=== PATIENT | male | born 1945 | race Asian ===

== ENCOUNTER 2017-09-15 18:41 | Inpatient (IN) | payer MEDICARE, MEDICAID ==
[~2017-09-15] VITALS: Ht 167.6 cm; Wt 46.3 kg
[2017-09-15 18:53] VITALS: BP 115/66
[2017-09-15] MEDS ORDERED: Morphine Sulfate 4mg/ml Inj IVP ONE (20:15)
[2017-09-15 20:22] LABS: BASOPHILS % (AUTO) 1.2 % (0.0-2.0); EOSINOPHILS % (AUTO) 6.8 % (0.0-3.0); HEMATOCRIT 31.3 % (42.0-52.0); HEMOGLOBIN 10.2 G/DL (14.2-18.0); LYMPHOCYTES % (AUTO) 13.2 % (20.0-45.0); MEAN CORPUSCULAR VOLUME 94 FL (80-99); MONOCYTES % (AUTO) 9.2 % (1.0-10.0); NEUTROPHILS % (AUTO) 69.5 % (45.0-75.0); PLATELET COUNT 167 K/UL (150-450); RED BLOOD COUNT 3.34 M/UL (4.70-6.10); RED CELL DISTRIBUTION WIDTH 13.8 % (11.6-14.8); WHITE BLOOD COUNT 6.2 K/UL (4.8-10.8)
[2017-09-15 20:33] LABS: INR 1.1 (0.9-1.1)
[2017-09-15 20:46] LABS: ANION GAP 6 mmol/L (5-15); BLOOD UREA NITROGEN 27 mg/dL (7-18); CALCIUM 8.3 MG/DL (8.5-10.1); CARBON DIOXIDE 28 MMOL/L (21-32); CHLORIDE 104 MMOL/L (98-107); CREATININE 0.9 MG/DL (0.55-1.30); POTASSIUM 3.9 MMOL/L (3.5-5.1); SODIUM 138 MMOL/L (136-145)
[2017-09-15 20:50] LABS: ALANINE AMINOTRANSFERASE 22 U/L (12-78); ALBUMIN/GLOBULIN RATIO 0.8 (1.0-2.7); ALKALINE PHOSPHATASE 200 U/L (46-116); ASPARTATE AMINO TRANSFERASE 31 U/L (15-37); BILIRUBIN,TOTAL 0.3 MG/DL (0.2-1.0); CREATINE KINASE 55 U/L (26-308)
[2017-09-15 21:30] VITALS: BP 118/71
--- NOTE | 2017-09-15 22:31 | Emergency Room Report ---
History of Present Illness General Chief Complaint: Multiple Trauma/Fall Source: Patient Present Illness HPI Patient is a 72-year-old male brought in by EMS after fall. Patient was noted to have increased pain to his left hip. Patient prior history of metastatic lung cancer. The patient had been unable to ambulate since Friday. He reported having increased pain. The patient was taking pain medications. Allergies: Coded Allergies: No Known Allergies (Unverified , 09/15/17) Patient History Past Medical History: see triage record Reviewed Nursing Documentation: PMH: Agreed; PSxH: Agreed Nursing Documentation-PMH Past Medical History: No History, Except For Hx Cancer: Yes - lung Review of Systems All Other Systems: negative except mentioned in HPI Physical Exam Vital Signs Date Time Temp Pulse Resp B/P (MAP) Pulse Ox O2 Delivery O2 Flow Rate FiO2 09/15/17 18:43 99.1 101 20 119/63 99 Room Air 99.1 Sp02 EP Interpretation: reviewed, normal General Appearance: normal inspection, well appearing, alert, GCS 15, thin, Chronically Ill Head: atraumatic Respiratory: normal inspection, lungs clear, normal breath sounds, no respiratory distress, no retraction, no wheezing Cardiovascular #1: regular rate, rhythm, no edema Gastrointestinal: normal inspection, normal bowel sounds, non tender, soft, no guarding, no hernia Genitourinary: no CVA tenderness Musculoskeletal: normal inspection, back normal, normal range of motion Neurologic: normal inspection, alert, oriented x3, responsive, speech normal Psychiatric: normal inspection, judgement/insight normal, mood/affect normal Skin: no rash, pallor Medical Decision Making Diagnostic Impression: Primary Impression: Fall Additional Impressions: Fracture of iliac wing Lung cancer metastatic to bone ER Course H presented for fall. Differential diagnosis included was not limited to neck fracture, CVA, close head injury, syncopal episode, basilar ischemia. Because of complexity of patient's case laboratory testing and imaging studies were ordered. CT imaging of the pelvis read by radiology showed fracture of the and left ilium characterized by cortical expansion erosion mild soft tissue edema small amount of atherosclerotic calcifications associated with mild left iliopsoas enlargement. Patient was given IV pain medications. Dr. Ben Coleman was contacted for inpatient management Labs Test 09/15/17 19:10 White Blood Count 6.2 K/UL (4.8-10.8) Red Blood Count 3.34 M/UL (4.70-6.10) Hemoglobin 10.2 G/DL (14.2-18.0) Hematocrit 31.3 % (42.0-52.0) Mean Corpuscular Volume 94 FL (80-99) Mean Corpuscular Hemoglobin 30.7 PG (27.0-31.0) Mean Corpuscular Hemoglobin Concent 32.7 G/DL (32.0-36.0) Red Cell Distribution Width 13.8 % (11.6-14.8) Platelet Count 167 K/UL (150-450) Mean Platelet Volume 6.8 FL (6.5-10.1) Neutrophils (%) (Auto) 69.5 % (45.0-75.0) Lymphocytes (%) (Auto) 13.2 % (20.0-45.0) Monocytes (%) (Auto) 9.2 % (1.0-10.0) Eosinophils (%) (Auto) 6.8 % (0.0-3.0) Basophils (%) (Auto) 1.2 % (0.0-2.0) Prothrombin Time 11.7 SEC (9.30-11.50) Prothromb Time International Ratio 1.1 (0.9-1.1) Activated Partial Thromboplast Time 29 SEC (23-33) Sodium Level 138 MMOL/L (136-145) Potassium Level 3.9 MMOL/L (3.5-5.1) Chloride Level 104 MMOL/L (98-107) Carbon Dioxide Level 28 MMOL/L (21-32) Anion Gap 6 mmol/L (5-15) Blood Urea Nitrogen 27 mg/dL (7-18) Creatinine 0.9 MG/DL (0.55-1.30) Estimat Glomerular Filtration Rate mL/min (>60) Glucose Level 121 MG/DL (74-106) Calcium Level 8.3 MG/DL (8.5-10.1) Total Bilirubin 0.3 MG/DL (0.2-1.0) Aspartate Amino Transf (AST/SGOT) 31 U/L (15-37) Alanine Aminotransferase (ALT/SGPT) 22 U/L (12-78) Alkaline Phosphatase 200 U/L (46-116) Total Creatine Kinase 55 U/L (26-308) Total Protein 6.7 G/DL (6.4-8.2) Albumin 3.0 G/DL (3.4-5.0) Globulin 3.7 g/dL Albumin/Globulin Ratio 0.8 (1.0-2.7) EKG Diagnostic Results Rate: normal Rhythm: NSR ST Segments: no acute changes Last Vital Signs Date Time Temp Pulse Resp B/P (MAP) Pulse Ox O2 Delivery O2 Flow Rate FiO2 09/15/17 18:53 98.2 89 20 115/66 100 Room Air 98.2 Status: unchanged Disposition: ADMITTED INPATIENT Condition: Serious Referrals: NOT CHOSEN IPA/,REFERRING (PCP) Huy Schultz Sep 15, 2017 22:30
[2017-09-15] MEDS ORDERED: MS CONTIN30 MG ORAL (22:42)
[2017-09-15] MEDS ORDERED: MOVANTIK25 MG PO (22:42)
[2017-09-15] MEDS ORDERED: AMITIZA24 MCG ORAL (22:42)
[2017-09-15] MEDS ORDERED: ROXICODONE15 MG ORAL (22:42)
[2017-09-15] MEDS ORDERED: MORPHINE IR15 MG ORAL (22:42)
[2017-09-15] MEDS ORDERED: LINZESS290 MCG PO (22:42)
[2017-09-15] MEDS ORDERED: Milk of Magnesia 30ml Ud ORAL PRN (23:15)
[2017-09-15] MEDS ORDERED: Miralax 17gm pkt ORAL PRN (23:15)
[2017-09-15] MEDS ORDERED: Morphine Sulfate 4mg/ml Inj IVP PRN (23:15)
[2017-09-16] VITALS: BP 110/86
[2017-09-16] MEDS: D5 1/2NS w/KCl 20mEq 1,000 ML IV SCH ×2 (00:41→14:45)
[2017-09-16] MEDS: Morphine Sulfate 2mg/ml Inj IVP PRN ×4 (02:42→18:24)
[2017-09-16 04:00] VITALS: BP 128/77
[2017-09-16 08:00] VITALS: BP 115/71
[2017-09-16] MEDS: Docusate 100mg cap ORAL SCH ×2 (08:23→20:57)
[2017-09-16] MEDS: Heparin 5000 units/ml inj SUBQ SCH ×2 (08:24→20:58)
[2017-09-16 08:42] LABS: BASOPHILS % (AUTO) 1.2 % (0.0-2.0); EOSINOPHILS % (AUTO) 7.1 % (0.0-3.0); HEMATOCRIT 36.7 % (42.0-52.0); HEMOGLOBIN 11.8 G/DL (14.2-18.0); LYMPHOCYTES % (AUTO) 12.3 % (20.0-45.0); MEAN CORPUSCULAR VOLUME 94 FL (80-99); MONOCYTES % (AUTO) 6.9 % (1.0-10.0); NEUTROPHILS % (AUTO) 72.6 % (45.0-75.0); PLATELET COUNT 204 K/UL (150-450); RED CELL DISTRIBUTION WIDTH 13.9 % (11.6-14.8); WHITE BLOOD COUNT 6.6 K/UL (4.8-10.8)
[2017-09-16 09:00] LABS: INR 1.1 (0.9-1.1)
[2017-09-16 09:04] LABS: ALANINE AMINOTRANSFERASE 21 U/L (12-78); ALBUMIN 3.5 G/DL (3.4-5.0); ALBUMIN/GLOBULIN RATIO 0.9 (1.0-2.7); ALKALINE PHOSPHATASE 225 U/L (46-116); ANION GAP 8 mmol/L (5-15); ASPARTATE AMINO TRANSFERASE 38 U/L (15-37); BILIRUBIN,TOTAL 0.5 MG/DL (0.2-1.0); BLOOD UREA NITROGEN 20 mg/dL (7-18); CALCIUM 8.8 MG/DL (8.5-10.1); CARBON DIOXIDE 28 MMOL/L (21-32); CHLORIDE 102 MMOL/L (98-107); CREATININE 0.8 MG/DL (0.55-1.30); PHOSPHORUS 3.2 MG/DL (2.5-4.9); POTASSIUM 4.3 MMOL/L (3.5-5.1); SODIUM 137 MMOL/L (136-145)
--- NOTE | 2017-09-16 09:46 | Diagnostic Imaging Report ---
Indication: Left hip pain Technique: No IV contrast, per trauma protocol Spiral acquisitions obtained through the pelvis/left hip Multiplanar reconstructions were generated. Total dose length product 350 mGycm. CTDIvol(s) 10 mGy. Radiation dose was minimized using automated exposure control Comparison: none Findings: The bones are diffusely involved with extensive osteolytic and osteoblastic lesions, with some areas of considerable osseous destruction. There is particularly extensive destruction of the left iliac wing, and there is an old-appearing but unhealed pathologic fracture of the left iliac wing. The left hip and proximal femur are intact. No other fractures are demonstrated. The joint spaces are preserved. Numerous metallic densities are seen in the anterior abdominal wall and lower lumbar region subcutaneous fat, probably old acupuncture needles. The visualized pelvic viscera are unremarkable Impression: Pathologic fracture, age indeterminate although suspect not acute, of the left iliac bone Diffuse osseous involvement by mixed osteolytic and osteoblastic, mostly the latter, presumed metastatic deposits Retained acupuncture needles This agrees with the preliminary interpretation provided overnight by [facility] teleradiology service. The CT scanner at [facility] is accredited by the [employer] and the scans are performed using protocols designed to limit radiation exposure to as low as reasonably achievable to attain images of sufficient resolution adequate for diagnostic evaluation.
[2017-09-16] MEDS: AMITIZA 8 MCG ORAL SCH ×2 (11:16→20:57)
[2017-09-16 12:00] VITALS: BP 128/77
[2017-09-16 15:49] VITALS: BP 121/75
--- NOTE | 2017-09-16 16:35 | Cardiology Report ---
APPROVED REPORT EKG Measurement Heart [id number] Normal sinus rhythm Left axis deviation Low voltage QRS Abnormal ECG
--- NOTE | 2017-09-16 18:27 | History & Physical ---
History and Physical History & Physicial Dictated for Int Med-Dr Coleman no. [id number]. CAT SKINNER Sep 16, 2017 18:27
[2017-09-16 20:00] VITALS: BP 123/78
[2017-09-16] MEDS: Dyna-Hex 2% Top Sol 2oz TOPIC SCH (20:57)
[2017-09-17] VITALS: BP 133/89
--- NOTE | 2017-09-17 | History and Physical Report ---
DATE OF ADMISSION: 09/15/2017 CHIEF COMPLAINT: This is a 72-year-old Ben[place] male presents with a chief complaint of left hip pain. HISTORY OF PRESENT ILLNESS: The patient has a history of lung cancer with metastases to the bone. The patient presented to [facility] emergency room complaining of left hip pain. An x-ray reveals a pathologic fracture of the left iliac. The patient is admitted for left pelvic fracture and left hip pain. PAST MEDICAL HISTORY: Significant for lung cancer with metastases, which was diagnosed 3 years. PAST SURGICAL HISTORY: The patient denies. CURRENT MEDICATIONS: 1. Linzess 290 mcg p.o. daily. 2. Amitiza 8 mg p.o. daily. 3. Morphine extended release 15 mg p.o. q.4 h. p.r.n. 4. Morphine sulfate, MS Contin extended release 30 mg p.o. daily. 5. Movantik 25 mg p.o. daily. 6. Oxycodone 15 mg p.o. q.4 h. p.r.n. ALLERGIES: No known drug allergies. SOCIAL HISTORY: The patient is and lives with his and his adult son. The patient denies tobacco use, having quit 30 years previously. The patient denies alcohol use. REVIEW OF SYSTEMS: CONSTITUTIONAL: The patient denies weight loss or weight gain. The patient denies fevers or chills. HEENT: The patient denies ear or throat pain. The patient denies headache. CARDIOVASCULAR: The patient denies palpitation or chest pain. CHEST: The patient denies wheeze or shortness of breath. ABDOMEN: The patient denies nausea, vomiting, diarrhea, or constipation. GENITOURINARY: The patient denies dysuria or increased frequency of urination. NEUROMUSCULAR: The patient complains of left hip pain as above. The patient denies seizures or generalized weakness. PHYSICAL EXAMINATION: GENERAL: The patient is a thin appearing Beninese male, in no apparent distress. VITAL SIGNS: Temperature 98.1 degrees, respirations 14, pulse 78, and blood pressure 109/91. HEENT: Eyes, pupils are equal and responsive to light and accommodation. Extraocular movements are intact. NECK: Supple without lymphadenopathy. CHEST: Lungs are clear to auscultation bilaterally without wheezes or rales. CARDIOVASCULAR: Regular rate. S1 and S2 are normal without murmurs, rubs, or gallops. ABDOMEN: Soft, nontender, and nondistended. Positive bowel sounds. No evidence of hepatosplenomegaly. Currently, no rebound or guarding noted. EXTREMITIES: Pain to palpation left hip, otherwise, without clubbing, cyanosis, or edema. RECTAL/GENITAL: Refused. NEUROLOGIC: Cranial nerves II through XII are grossly intact without focal deficits. LABORATORY AND DIAGNOSTIC DATA: WBC 6.2, hemoglobin 10.2, hematocrit 31.3 and platelets 167,000. Sodium 138, potassium 3.9, chloride 104, CO2 28, BUN 27, creatinine 0.9 and glucose 121. Alkaline phosphatase elevated at 200. A CT scan of the left hip revealed pathologic fracture of the left iliac bone. ASSESSMENT: This is a 72-year-old male 1. Left hip pain. 2. Left iliac bone fracture. 3. Lung cancer with metastases. TREATMENT: 1. Left hip pain/left iliac bone fractures. An Orthopedic consultation has been obtained with . We will follow recommendations of Orthopedic Surgery. Fracture appeared to be pathologic. 2. Lung cancer with metastases. A Hematology/Oncology consultation has been obtained with Dr. Lerner. Petr Connors M.D. DR: HALLEY JOB#: [id number] CC:
[2017-09-17] MEDS: Morphine Sulfate 2mg/ml Inj IVP PRN ×3 (00:17→15:35)
[2017-09-17] MEDS: D5 1/2NS w/KCl 20mEq 1,000 ML IV SCH ×2 (02:58→15:44)
[2017-09-17 04:00] VITALS: BP 136/80
--- NOTE | 2017-09-17 05:15 | Consultation ---
DATE OF CONSULTATION: 09/16/2017 CONSULTING PHYSICIAN: Herrera Hopkins M.D. CHIEF COMPLAINT: Left hip pain. HISTORY OF PRESENT ILLNESS: The patient is a 72-year-old gentleman, who has a history of lung cancer who presents with significant pain and difficulty ambulating. He was brought to the ER. Imaging studies of the pelvis showed a fracture. Therefore, he was admitted for pain management. Orthopedic consultation obtained for further care and recommendation regarding the fracture. PAST MEDICAL HISTORY: Lung cancer. PAST SURGICAL HISTORY: None listed. MEDICATIONS: Reviewed from intake chart. ALLERGIES: None. SOCIAL HISTORY: The patient does have a history of smoking. FAMILY HISTORY: Noncontributory. PHYSICAL EXAMINATION: GENERAL: The patient is alert and oriented. He is resting comfortably at this time in bed. He is pretty cachectic. VITAL SIGNS: Afebrile. Stable vital signs. MUSCULOSKELETAL: Left hip examination shows pain on the iliac crest. There is no pain with internal and external rotation of left hip. Neurovascular is normal. LABORATORY AND DIAGNOSTIC DATA: CT scan of the left hip shows what appears to be a pathological fracture of the iliac wing. ASSESSMENT: 1. Metastatic lung cancer. 2. Left acute pathologic iliac wing fracture. DISCUSSION: At this point, he has a fall. He has a fracture of the ilium. At this point, there is not much that can be done for the fracture however he will be given appropriate pain medications. He subsequently needs to be followed up with Hematology/Oncology to see if there are additional treatment options including chemo or radiation. Radiation is probably not likely to be beneficial in this case given that it would also prevent the bone from healing. He should be on appropriate DVT prophylaxis given his risk of hypercoagulable state, cancer, and immobility. Herrera Hopkins M.D. DR: CHARISSA JOB#: [id number] CC: SHEN
[2017-09-17 07:09] LABS: BASOPHILS % (AUTO) 1.4 % (0.0-2.0); EOSINOPHILS % (AUTO) 6.1 % (0.0-3.0); HEMATOCRIT 28.2 % (42.0-52.0); HEMOGLOBIN 9.1 G/DL (14.2-18.0); LYMPHOCYTES % (AUTO) 12.5 % (20.0-45.0); MEAN CORPUSCULAR VOLUME 96 FL (80-99); MONOCYTES % (AUTO) 8.5 % (1.0-10.0); NEUTROPHILS % (AUTO) 71.6 % (45.0-75.0); PLATELET COUNT 132 K/UL (150-450); RED BLOOD COUNT 2.93 M/UL (4.70-6.10); RED CELL DISTRIBUTION WIDTH 14.2 % (11.6-14.8); WHITE BLOOD COUNT 6.1 K/UL (4.8-10.8)
[2017-09-17 08:00] VITALS: BP 134/75
[2017-09-17] MEDS: Docusate 100mg cap ORAL SCH ×2 (08:33→20:52)
[2017-09-17] MEDS: AMITIZA 8 MCG ORAL SCH ×2 (08:35→18:34)
[2017-09-17] MEDS: Heparin 5000 units/ml inj SUBQ SCH ×2 (08:37→20:53)
[2017-09-17 09:03] LABS: ANION GAP 6 mmol/L (5-15); BLOOD UREA NITROGEN 13 mg/dL (7-18); CALCIUM 8.1 MG/DL (8.5-10.1); CARBON DIOXIDE 25 MMOL/L (21-32); CHLORIDE 99 MMOL/L (98-107); CREATININE 0.6 MG/DL (0.55-1.30); POTASSIUM 4.2 MMOL/L (3.5-5.1); SODIUM 130 MMOL/L (136-145)
[2017-09-17 10:35] LABS: FERRITIN 579 NG/ML (8-388)
--- NOTE | 2017-09-17 10:59 | Diagnostic Imaging Report ---
Indication: Cough Technique: One view of the chest Comparison: none Findings: A few retained acupuncture needles are seen projecting over the upper chest the medial left hemidiaphragm is obscured. The remainder of the lungs and pleural spaces are clear. The heart size is normal. There is a right arm catheter. 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
[2017-09-17 11:33] LABS: % IRON SATURATION 22 % (15-50); IRON 37 ug/dL (50-175); TOTAL IRON BINDING CAPACITY 172 ug/dL (250-450)
[2017-09-17 12:00] VITALS: BP 131/76
--- NOTE | 2017-09-17 13:04 | Internal Med Progress Note ---
Subjective Date of Service: Sep 17, 2017 Physician Name Cat Skinner Attending Physician Ben Coleman MD Current Medications Medications (Trade) Dose Ordered Sig/Jose Route PRN Reason Start Time Stop Time Status Last Admin Dose Admin Acetaminophen (Tylenol) 650 mg Q4H PRN ORAL Mild Pain (Pain Scale 1-3) 09/15/17 23:15 10/15/17 23:14 Bisacodyl (Dulcolax) 10 mg HSPRN PRN RECTAL Constipation 09/15/17 23:15 10/15/17 23:14 Chlorhexidine Gluconate (Val-Hex 2%) 1 applic DAILY@2000 TOPIC 09/16/17 20:00 10/16/17 19:59 09/16/17 20:57 Dextrose (Dextrose 50%) STAT PRN IV Hypoglycemia 09/15/17 23:15 10/15/17 23:14 Dextrose/ Electrolytes 1,000 ml @ 75 mls/hr [id number] IV 09/16/17 00:04 10/16/17 00:03 09/17/17 02:58 Diphenhydramine HCl (Benadryl) 25 mg Q6H PRN ORAL Itching/Pruritis 09/15/17 23:15 10/15/17 23:14 Docusate Sodium (Colace) 100 mg EVERY 12 HOURS ORAL 09/16/17 09:00 10/16/17 08:59 09/17/17 08:33 Heparin Sodium (Porcine) (Heparin 5000 units/ml) 5,000 units EVERY 12 HOURS SUBQ 09/16/17 09:00 10/16/17 08:59 09/16/17 20:58 Magnesium Hydroxide (Mom) 30 ml HSPRN PRN ORAL Constipation 09/15/17 23:15 10/15/17 23:14 Morphine Sulfate (Morphine Sulfate) 2 mg Q4HR PRN IVP Moderate Pain (Pain Scale 4-6) 09/15/17 23:15 09/22/17 23:14 09/17/17 10:05 Morphine Sulfate (Morphine Sulfate) 4 mg Q4HR PRN IVP Severe Pain (Pain Scale 7-10) 09/15/17 23:15 09/22/17 23:14 Ondansetron HCl (Zofran) 4 mg Q6H PRN IVP Nausea & Vomiting 09/15/17 23:15 10/15/17 23:14 Patient Own Medication (Patient's Own Med) 1 ea BID ORAL 09/16/17 10:00 10/16/17 09:59 09/17/17 08:35 Polyethylene Glycol (Miralax) 17 gm HSPRN PRN ORAL Constipation 09/15/17 23:15 10/15/17 23:14 Allergies: Coded Allergies: No Known Allergies (Unverified , 09/15/17) ROS Limited/Unobtainable: No Constitutional: Reports: no symptoms HEENT: Reports: no symptoms Cardiovascular: Reports: no symptoms Respiratory: Reports: no symptoms Gastrointestinal/Abdominal: Reports: no symptoms Genitourinary: Reports: no symptoms Neurologic/Psychiatric: Reports: no symptoms Subjective 72 YO M admitted with left hip pain. Now pathologic fracture left iliac bone. Cover for Int Med-Dr Coleman. Await oncology consult. Objective Last Vital Signs Date Time Temp Pulse Resp B/P (MAP) Pulse Ox O2 Delivery O2 Flow Rate FiO2 09/17/17 12:00 98.8 87 18 131/76 100 98.8 09/16/17 15:49 Room Air General Appearance: alert, mild distress, cachetic, thin EENT: PERRL/EOMI, normal ENT inspection Neck: non-tender, normal alignment, supple, normal inspection Cardiovascular: normal peripheral pulses, normal rate, regular rhythm, no gallop/murmur, no JVD Respiratory/Chest: chest wall non-tender, lungs clear, normal breath sounds, no respiratory distress, no accessory muscle use Abdomen: normal bowel sounds, non tender, soft, no organomegaly, no mass Extremities: normal range of motion, other - tender left hip Neurologic: dietitian II-XII grossly normal, no motor/sensory deficits Skin: normal pigmentation, warm/dry Laboratory Tests Test 09/17/17 05:45 09/17/17 08:20 09/17/17 10:00 White Blood Count 6.1 K/UL (4.8-10.8) Red Blood Count 2.93 M/UL (4.70-6.10) L Hemoglobin 9.1 G/DL (14.2-18.0) L Hematocrit 28.2 % (42.0-52.0) L Mean Corpuscular Volume 96 FL (80-99) Mean Corpuscular Hemoglobin 31.1 PG (27.0-31.0) H Mean Corpuscular Hemoglobin Concent 32.3 G/DL (32.0-36.0) Red Cell Distribution Width 14.2 % (11.6-14.8) Platelet Count 132 K/UL (150-450) L Mean Platelet Volume 7.0 FL (6.5-10.1) Neutrophils (%) (Auto) 71.6 % (45.0-75.0) Lymphocytes (%) (Auto) 12.5 % (20.0-45.0) L Monocytes (%) (Auto) 8.5 % (1.0-10.0) Eosinophils (%) (Auto) 6.1 % (0.0-3.0) H Basophils (%) (Auto) 1.4 % (0.0-2.0) Uric Acid 2.9 MG/DL (2.6-7.2) Iron Level 37 ug/dL (50-175) L Total Iron Binding Capacity 172 ug/dL (250-450) L Percent Iron Saturation 22 % (15-50) Unsaturated Iron Binding 135 ug/dL (112-346) Ferritin 579 NG/ML (8-388) H Vitamin B12 Level > 2000 PG/ML (193-986) H Folate 5.5 NG/ML (8.6-58.9) L Sodium Level 130 MMOL/L (136-145) L Potassium Level 4.2 MMOL/L (3.5-5.1) Chloride Level 99 MMOL/L (98-107) Carbon Dioxide Level 25 MMOL/L (21-32) Anion Gap 6 mmol/L (5-15) Blood Urea Nitrogen 13 mg/dL (7-18) Creatinine 0.6 MG/DL (0.55-1.30) Estimat Glomerular Filtration Rate mL/min (>60) Glucose Level 89 MG/DL (74-106) Calcium Level 8.1 MG/DL (8.5-10.1) L Fibrinogen 441 mg/dL (200-400) H Intake and Output 09/16/17 09/17/17 19:00 07:00 Intake Total 1305 ml 825 ml Output Total 680 ml 600 ml Balance 625 ml 225 ml Intake Oral 480 ml IV Total 825 ml 825 ml Output Urine Total 680 ml 600 ml # Voids 1 Assessment/Plan Problem List: (1) Hip pain, left Assessment & Plan: Due to fracture (2) Fracture of iliac wing Assessment & Plan: Non surgical; see ortho note. (3) Lung cancer metastatic to bone Assessment & Plan: Await onc consult. (4) Fall Status: not improved CAT SKINNER Sep 17, 2017 13:04
[2017-09-17 16:00] VITALS: BP 124/83
[2017-09-17 20:00] VITALS: BP 142/80
[2017-09-17] MEDS: Dyna-Hex 2% Top Sol 2oz TOPIC SCH (20:52)
[2017-09-18] VITALS: BP 111/74
[2017-09-18] MEDS: Morphine Sulfate 2mg/ml Inj IVP PRN (01:31)
[2017-09-18 03:56] VITALS: BP 122/82
[2017-09-18] MEDS: D5 1/2NS w/KCl 20mEq 1,000 ML IV SCH (05:58)
[2017-09-18 07:09] LABS: ANION GAP 9 mmol/L (5-15); BLOOD UREA NITROGEN 13 mg/dL (7-18); CALCIUM 8.6 MG/DL (8.5-10.1); CARBON DIOXIDE 24 MMOL/L (21-32); CHLORIDE 93 MMOL/L (98-107); CREATININE 0.6 MG/DL (0.55-1.30); POTASSIUM 4.4 MMOL/L (3.5-5.1); SODIUM 126 MMOL/L (136-145)
[2017-09-18 07:36] LABS: BASOPHILS % (AUTO) 0.8 % (0.0-2.0); EOSINOPHILS % (AUTO) 5.3 % (0.0-3.0); HEMATOCRIT 33.4 % (42.0-52.0); HEMOGLOBIN 11.8 G/DL (14.2-18.0); LYMPHOCYTES % (AUTO) 11.2 % (20.0-45.0); MEAN CORPUSCULAR VOLUME 90 FL (80-99); MONOCYTES % (AUTO) 9.6 % (1.0-10.0); NEUTROPHILS % (AUTO) 73.1 % (45.0-75.0); PLATELET COUNT 138 K/UL (150-450); RED BLOOD COUNT 3.71 M/UL (4.70-6.10); RED CELL DISTRIBUTION WIDTH 13.1 % (11.6-14.8); WHITE BLOOD COUNT 7.7 K/UL (4.8-10.8)
[2017-09-18 08:00] VITALS: BP 130/80
[2017-09-18] MEDS: Heparin 5000 units/ml inj SUBQ SCH ×2 (08:30→21:00)
--- NOTE | 2017-09-18 08:46 | Consultation ---
DATE OF CONSULTATION: 09/17/2017 HEMATOLOGY/ONCOLOGY CONSULTATION CONSULTING PHYSICIAN: Sadi Lerner M.D. REQUESTING PHYSICIANS: Ben Coleman M.D. and Petr Connors M.D. REASON FOR CONSULTATION: Evaluation of lung cancer metastasis. IDENTIFYING DATA: Dear Dr. Connors, The patient is a pleasant 72-year-old male with past medical history significant for history of lung cancer with metastasis, significant pain and difficulty ambulating, presents to the ER. Imaging showed a fracture. He was admitted for pain management. Orthopedic Surgery was consulted. At this time, he has a fracture of the ilium, which was noted, given appropriate pain medications, may require chemotherapy with radiation. Radiation is probably not likely to be beneficial to the patient given that it would also prevent the bone from healing. It is a high risk for hypercoagulability disorder and Hematology/Oncology Service was consulted for further evaluation. PAST MEDICAL HISTORY: As noted above, lung cancer with metastasis, diagnosed three years ago. PAST SURGICAL HISTORY: None noted. MEDICATIONS: Linzess, Amitiza, morphine, Movantik, and oxycodone. ALLERGIES: No known drug allergies. SOCIAL HISTORY: , lives with his and adult son. No alcohol use. Quit smoking about 30 years ago. Denies any alcohol use at this time. REVIEW OF SYSTEMS: CONSTITUTIONAL: No fever, chills, or night sweats. SKIN: No rashes, bumps, or itching. HEENT: No headache, hearing or vision changes. BREASTS: No lumps, pain, or discharge. PULMONARY: No cough, sputum, or shortness of breath. GASTROINTESTINAL: No nausea, vomiting, or diarrhea. GENITOURINARY: No dysuria, frequency, or urgency. MUSCULOSKELETAL: Some left hip swelling and pain is noted. NEUROLOGIC: Nonfocal. PHYSICAL EXAMINATION: VITAL SIGNS: Reviewed. GENERAL: No distress. PULMONARY: Decreased breath sounds. CARDIOVASCULAR: Regular rate. No S3 or S4. ABDOMEN: Soft, nontender, and nondistended. EXTREMITIES: No cyanosis, swelling, or edema noted. LABORATORY AND DIAGNOSTIC DATA: WBC of 6.1, hemoglobin 9.1, hematocrit 28, and platelet count 132,000. Imaging has been reviewed. Hip CAT scan, diffuse osseous metastasis, osteolytic-osteoblastic lesions, metastatic deposits . ASSESSMENT AND RECOMMENDATIONS: 1. Metastatic lung cancer. Currently, the patient appears very weak. He has had this disease for 3 years. He did not have his underlying tissue diagnosis. Recommend to obtain this to see if he has a full-growing disease, which is something that has rapid onset. Closely monitor. May need treatment with Oncology as an outpatient. 2. Anemia of chronic disease. Continue to closely monitor. I have sent for folic acid, fibrinogen, ferritin as well as iron panel, occult blood, B12, and uric acid. These have been ordered at this time. Continue to monitor. Hemoglobin goal is above 7. 3. Thrombocytopenia. Continue to closely monitor, likely related to current reactive process from hip fracture. 4. Pain management, which is chronic. Continue to closely monitor. 5. Left iliac bone fracture. The patient has had lung cancer for 3 years. Need to obtain treatment that he has had, not sure if orthopedic procedure will be beneficial given terminal prognosis. I appreciate the consultation. Sadi Lerner M.D. DR: TRENT JOB#: [id number] CC:
[2017-09-18] MEDS: AMITIZA 8 MCG ORAL SCH ×2 (10:02→18:04)
[2017-09-18] MEDS: Docusate 100mg cap ORAL SCH ×2 (10:02→21:25)
[2017-09-18] MEDS: D5NS 1,000 ML IV SCH ×2 (10:03→21:31)
[2017-09-18 12:00] VITALS: BP 125/76
[2017-09-18 16:00] VITALS: BP 126/74
--- NOTE | 2017-09-18 19:31 | Internal Med Progress Note ---
Subjective Physician Name Ben Coleman Attending Physician Ben Coleman MD Current Medications Medications (Trade) Dose Ordered Sig/Jose Route PRN Reason Start Time Stop Time Status Last Admin Dose Admin Acetaminophen (Tylenol) 650 mg Q4H PRN ORAL Mild Pain (Pain Scale 1-3) 09/15/17 23:15 10/15/17 23:14 Bisacodyl (Dulcolax) 10 mg HSPRN PRN RECTAL Constipation 09/15/17 23:15 10/15/17 23:14 Chlorhexidine Gluconate (Val-Hex 2%) 1 applic DAILY@2000 TOPIC 09/16/17 20:00 10/16/17 19:59 09/17/17 20:52 Dextrose (Dextrose 50%) STAT PRN IV Hypoglycemia 09/15/17 23:15 10/15/17 23:14 Dextrose/Sodium Chloride 1,000 ml @ 75 mls/hr [id number] IV 09/18/17 08:30 10/18/17 08:29 09/18/17 10:03 Diphenhydramine HCl (Benadryl) 25 mg Q6H PRN ORAL Itching/Pruritis 09/15/17 23:15 10/15/17 23:14 Docusate Sodium (Colace) 100 mg EVERY 12 HOURS ORAL 09/16/17 09:00 10/16/17 08:59 09/18/17 10:02 Heparin Sodium (Porcine) (Heparin 5000 units/ml) 5,000 units EVERY 12 HOURS SUBQ 09/16/17 09:00 10/16/17 08:59 09/16/17 20:58 Magnesium Hydroxide (Mom) 30 ml HSPRN PRN ORAL Constipation 09/15/17 23:15 10/15/17 23:14 09/18/17 01:24 Morphine Sulfate (Morphine Sulfate) 2 mg Q4HR PRN IVP Moderate Pain (Pain Scale 4-6) 09/15/17 23:15 09/22/17 23:14 09/18/17 01:31 Morphine Sulfate (Morphine Sulfate) 4 mg Q4HR PRN IVP Severe Pain (Pain Scale 7-10) 09/15/17 23:15 09/22/17 23:14 Ondansetron HCl (Zofran) 4 mg Q6H PRN IVP Nausea & Vomiting 09/15/17 23:15 10/15/17 23:14 Patient Own Medication (Patient's Own Med) 1 ea BID ORAL 09/16/17 10:00 10/16/17 09:59 09/18/17 18:04 Polyethylene Glycol (Miralax) 17 gm HSPRN PRN ORAL Constipation 09/15/17 23:15 10/15/17 23:14 09/17/17 15:35 Allergies: Coded Allergies: No Known Allergies (Unverified , 09/15/17) Subjective awake, alert, responsive, No CP or SOB, No pain now. Objective Last Vital Signs Date Time Temp Pulse Resp B/P (MAP) Pulse Ox O2 Delivery O2 Flow Rate FiO2 09/18/17 16:00 96.8 82 20 126/74 99 Room Air 96.8 Laboratory Tests Test 09/18/17 05:45 White Blood Count 7.7 K/UL (4.8-10.8) Red Blood Count 3.71 M/UL (4.70-6.10) L Hemoglobin 11.8 G/DL (14.2-18.0) L Hematocrit 33.4 % (42.0-52.0) L Mean Corpuscular Volume 90 FL (80-99) Mean Corpuscular Hemoglobin 31.9 PG (27.0-31.0) H Mean Corpuscular Hemoglobin Concent 35.3 G/DL (32.0-36.0) Red Cell Distribution Width 13.1 % (11.6-14.8) Platelet Count 138 K/UL (150-450) L Mean Platelet Volume 7.2 FL (6.5-10.1) Neutrophils (%) (Auto) 73.1 % (45.0-75.0) Lymphocytes (%) (Auto) 11.2 % (20.0-45.0) L Monocytes (%) (Auto) 9.6 % (1.0-10.0) Eosinophils (%) (Auto) 5.3 % (0.0-3.0) H Basophils (%) (Auto) 0.8 % (0.0-2.0) Sodium Level 126 MMOL/L (136-145) L Potassium Level 4.4 MMOL/L (3.5-5.1) Chloride Level 93 MMOL/L (98-107) L Carbon Dioxide Level 24 MMOL/L (21-32) Anion Gap 9 mmol/L (5-15) Blood Urea Nitrogen 13 mg/dL (7-18) Creatinine 0.6 MG/DL (0.55-1.30) Estimat Glomerular Filtration Rate mL/min (>60) Glucose Level 89 MG/DL (74-106) Calcium Level 8.6 MG/DL (8.5-10.1) Intake and Output 09/17/17 09/18/17 19:00 07:00 Intake Total 750 ml 1020 ml Balance 750 ml 1020 ml Intake Oral 120 ml IV Total 750 ml 900 ml # Voids 3 2 Objective General: No acute distress, awake and alert HEENT: NCAT, sclera anicteric, PERRL, EOMI. Neck: Supple, no significant jugular venous distention, Lungs: fair inspiratory effort, clear to auscultation bilaterally, no Wheeze or Rales. Heart: Regular rate and rhythm, normal S1/S2, no murmurs. Abdomen: soft, nontender, nondistended. Normoactive bowel sounds. / Rectal: Refused and deferred. Extremities: No Cyanosis , clubbing or edema. Neuro: A&O x 3, Able to move all extremities Skin: warm, no rashes, Assessment/Plan Assessment/Plan 1. Metastatic lung cancer. 2. Anemia of chronic disease. 3. Thrombocytopenia. 4. Left iliac bone pathologic fracture. Plan: Pain medication transfer to SNF in Ben Coleman MD Sep 18, 2017 19:31
[2017-09-18 20:00] VITALS: BP 102/79
[2017-09-18] MEDS ORDERED: COLACE100 MG ORAL (20:22)
[2017-09-18] MEDS ORDERED: NOVOLOG100 UNIT/3 SUBQ (20:23)
[2017-09-18] MEDS ORDERED: NovoLOG Insulin Flexpen SUBQ SCH (21:00)
[2017-09-18] MEDS: Dyna-Hex 2% Top Sol 2oz TOPIC SCH (21:25)
[2017-09-19] VITALS: BP 130/88
--- NOTE | 2017-09-19 00:19 | General Progress Note ---
Assessment/Plan Assessment/Plan 1. Metastatic lung cancer. Currently, the patient appears very weak. He has had this disease for 3 years. --> He did not have his underlying tissue diagnosis. --> Recommend to obtain this to see if he has a full-growing disease, which is something that has rapid onset. --> Closely monitor. May need treatment with Oncology as an outpatient. 2. Anemia of chronic disease. --> Continue to closely monitor. I have sent for folic acid, fibrinogen, ferritin as well as iron panel, occult blood, B12, and uric acid. --> These have been ordered at this time. Continue to monitor. Hemoglobin goal is above 7. --> Anemia workup reviewed. Iron 37, TIBC 172, B12 >2000, Folate 5.5 3. Thrombocytopenia. --> Continue to closely monitor, likely related to current reactive process from hip fracture. 4. Pain management, which is chronic. Continue to closely monitor. 5. Left iliac bone fracture. The patient has had lung cancer for 3 years. --> Need to obtain treatment that he has had, not sure if orthopedic procedure will be beneficial given terminal prognosis. Subjective Date patient seen: Sep 18, 2017 Constitutional: Denies: no symptoms, chills, diaphoresis, fever, malaise, weakness, other HEENT: Denies: no symptoms, eye pain, blurred vision, tearing, double vision, ear pain, ear discharge, nose pain, nose congestion, throat pain, throat swelling, mouth pain, mouth swelling, other Cardiovascular: Denies: no symptoms, chest pain, edema, irregular heart rate, lightheadedness, palpitations, syncope, other Respiratory: Denies: no symptoms, cough, orthopnea, shortness of breath, SOB with excertion, SOB at rest, sputum, stridor, wheezing, other Gastrointestinal/Abdominal: Denies: no symptoms, abdomen distended, abdominal pain, black stools, tarry stools, blood in stool, constipated, diarrhea, difficulty swallowing, nausea, poor appetite, poor fluid intake, rectal bleeding , vomiting, other Genitourinary: Denies: no symptoms, burning, discharge, frequency, flank pain, hematuria, incontinence, pain, urgency, other Neurologic/Psychiatric: Denies: no symptoms, anxiety, depressed, emotional problems, headache, numbness, paresthesia, pre-existing deficit, seizure, tingling, tremors, weakness, other Hematologic/Lymphatic: Reports: anemia Allergies: Coded Allergies: No Known Allergies (Unverified , 09/15/17) Subjective Ongoing pain control. Pt appears very weak. H/H stable. Objective Last 24 Hour Vital Signs Date Time Temp Pulse Resp B/P (MAP) Pulse Ox O2 Delivery O2 Flow Rate FiO2 09/19/17 00:00 98.3 90 19 130/88 99 Room Air 98.3 09/18/17 20:00 97.6 94 19 102/79 99 Room Air 97.6 09/18/17 16:00 96.8 82 20 126/74 99 Room Air 96.8 09/18/17 12:00 97.2 65 20 125/76 100 Room Air 97.2 09/18/17 08:00 97.7 88 20 130/80 100 Room Air 97.7 09/18/17 03:56 97.9 91 18 122/82 100 Room Air 97.9 Intake and Output 09/18/17 09/19/17 19:00 07:00 Intake Total 675 ml 225 ml Output Total 300 ml Balance 375 ml 225 ml Intake Oral 600 ml IV Total 75 ml 225 ml Output Urine Total 300 ml # Voids 2 Laboratory Tests 09/18/17 05:45: White Blood Count 7.7, Red Blood Count 3.71L, Hemoglobin 11.8L, Hematocrit 33.4L , Mean Corpuscular Volume 90, Mean Corpuscular Hemoglobin 31.9H, Mean Corpuscular Hemoglobin Concent 35.3, Red Cell Distribution Width 13.1, Platelet Count 138L, Mean Platelet Volume 7.2, Neutrophils (%) (Auto) 73.1, Lymphocytes ( %) (Auto) 11.2L, Monocytes (%) (Auto) 9.6, Eosinophils (%) (Auto) 5.3H, Basophils (%) (Auto) 0.8, Sodium Level 126L, Potassium Level 4.4, Chloride Level 93L, Carbon Dioxide Level 24, Anion Gap 9, Blood Urea Nitrogen 13, Creatinine 0.6, Estimat Glomerular Filtration Rate , Glucose Level 89, Calcium Level 8.6 Height (Feet): 5 Height (Inches): 6.00 Weight (Pounds): 102 General Appearance: lethargic Respiratory/Chest: decreased breath sounds Abdomen: soft Sadi Lerner MD Sep 19, 2017 00:19
--- NOTE | 2017-09-19 01:31 | Progress Note ---
DATE: 09/17/2017 SUBJECTIVE: No issues overnight. The patient is still having some moderate discomfort along the left pelvis that is making the ambulation difficult. OBJECTIVE: Examination shows tenderness to palpation on the left iliac crest and swelling. Posterior calf is soft. Neurovascular is normal. ASSESSMENT: Left pathological iliac crest fracture secondary to metastatic lung cancer. DISCUSSION: At this point, his pain needs to be better managed. Needs to have physical therapy. Based on physical therapy recommendations, he may have to go to rehab for a period of time before he is more ambulatory alternatively. He is doing relatively well. He can be ambulating with a walker and will be discharged to home. He is to be maintained on DVT prophylaxis. I discussed this with PMD for the alternate management. Herrera Hopkins M.D. DR: BROOK JOB#: [id number] CC: SHEN
[2017-09-19 04:00] VITALS: BP 137/91
[2017-09-19] MEDS ORDERED: HEPARIN SO5000 UNIT2 SUBQ (04:19)
[2017-09-19] MEDS: Morphine Sulfate 2mg/ml Inj IVP PRN (06:19)
[2017-09-19 08:00] VITALS: BP 132/82
[2017-09-19] MEDS: Heparin 5000 units/ml inj SUBQ SCH (09:00)
[2017-09-19] MEDS: AMITIZA 8 MCG ORAL SCH (09:14)
[2017-09-19] MEDS: Docusate 100mg cap ORAL SCH (09:15)
[2017-09-19] MEDS ORDERED: Heplock Flush 100 units/ml 3 ml syr INJ ONE (10:30)
[2017-09-19] MEDS: D5NS 1,000 ML IV SCH (11:28)
[2017-09-19] MEDS ORDERED: D5NS 1000ml IV ONE (11:44)
--- NOTE | 2017-09-19 20:18 | Internal Med Progress Note ---
Subjective Physician Name Ben Coleman Attending Physician Ben Coleman MD Allergies: Coded Allergies: No Known Allergies (Unverified , 09/15/17) Subjective awake, alert, responsive, No CP or SOB, NAD. Objective Last Vital Signs Date Time Temp Pulse Resp B/P (MAP) Pulse Ox O2 Delivery O2 Flow Rate FiO2 09/19/17 08:00 97.3 94 22 132/82 98 97.3 09/19/17 00:00 Room Air Intake and Output 09/18/17 09/19/17 19:00 07:00 Intake Total 675 ml 825 ml Output Total 300 ml 700 ml Balance 375 ml 125 ml Intake Oral 600 ml IV Total 75 ml 825 ml Output Urine Total 300 ml 700 ml # Voids 2 3 Objective General: No acute distress, awake and alert HEENT: NCAT, sclera anicteric, PERRL, EOMI. Neck: Supple, no significant jugular venous distention, Lungs: fair inspiratory effort, clear to auscultation bilaterally, no Wheeze or Rales. Heart: Regular rate and rhythm, normal S1/S2, no murmurs. Abdomen: soft, nontender, nondistended. Normoactive bowel sounds. / Rectal: Refused and deferred. Extremities: No Cyanosis , clubbing or edema. Neuro: A&O x 3, Able to move all extremities Skin: warm, no rashes, Assessment/Plan Assessment/Plan 1. Metastatic lung cancer. 2. Anemia of chronic disease. 3. Thrombocytopenia. 4. Left iliac bone pathologic fracture. Plan: Pain medication transfer to SNF today Ben Coleman MD Sep 19, 2017 20:18
--- NOTE | 2017-09-20 12:06 | Discharge Summary ---
Discharge Summary Discharge Summary Discharge Summary DATE OF ADMISSION: 09/15/2017 DATE OF DISCHARGE: 09/19/2017 REASON FOR ADMISSION: 72 years old male with past medical history significant for metastatic lung cancer with metastasis to bone, diagnosed 3 years ago, presented to emergency room for evaluation after fall. Patient was unable to ambulate since fall. Patient reported increasing pain in left hip. CAT scan of left hip revealed pathological fracture, age indeterminate ,of left iliac bone. 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 Hemoglobin 10.2 hematocrit 31.3. Patient admitted for further management with diagnosis status post fall, left iliac wing pathological fracture, metastatic lung cancer with metastasis to bone , anemia. HOSPITAL COURSE: Patient admitted to medical surgical floor. Orthopedic surgery consult was requested along with oncology consult. Per orthopedic surgeon patient needs aggressive pain management along with physical therapy. Oncologist seen and evaluated the patient. Anemia workup was consistent with anemia of chronic disease DVT prophylaxis provided. Bowel regimen instituted. Hemoglobin and hematocrit remained at the baseline. Noted thrombocytopenia, likely related to current reactive process due to hip fracture as per [employer] supervisor. [employer] recommended further follow-up with the oncologist as outpatient for chemotherapy if desired. Patient was stable for discharge to [facility] facility for pain management and physical therapy FINAL DIAGNOSES: 1. 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 2. Left iliac bone pathological fracture. 3. Anemia of chronic disease. 4. Thrombocytopenia . DISCHARGE MEDICATIONS: See Medication Reconciliation list. DISCHARGE INSTRUCTIONS: Patient was discharged to [facility] facility for physical therapy and pain management, follow-up with medical doctor at the facility I have been assigned to dictate discharge summary for this account. I was not involved in the patient's management. Patricia Saucedo NP ([place]) Sep 20, 2017 12:06
== END 2017-09-19 11:45 | DRG 543 ==
LOC: EDBD 18:41 → EMR 19:25 → 4E 22:09 → EDBEDREQ 22:27
DX: M84.550A Pathological fracture in neoplastic disease, pelvis, initial encounter for fracture (principal); C79.51 Secondary malignant neoplasm of bone; C34.90 Malignant neoplasm of unspecified part of unspecified bronchus or lung; D63.8 Anemia in other chronic diseases classified elsewhere; D69.6 Thrombocytopenia, unspecified; Z87.891 Personal history of nicotine dependence; W19.XXXA Unspecified fall, initial encounter; Y92.89 Other specified places as the place of occurrence of the external cause
CPT/HCPCS: 36415; 71045; 80048; 80053; 82550; 82607; 82728; 82746; 82962; 83540; 83550; 83735; 84100; 84550; 85025; 85384; 85610; 85730; 86850; 86900; 86901; 93005; 99285; J1815